=== PATIENT | male | born 1990 | race Caucasian/White ===

== ENCOUNTER 2017-02-14 22:39 | Emergency (ER) | payer SELFPAY ==
[~2017-02-14] VITALS: Ht 165.1 cm; Wt 54.4 kg
[2017-02-14 22:45] VITALS: BP 125/64
--- NOTE | 2017-02-14 22:55 | NUR ---
27Y M BIB FAMILY FOR SCREENING FOR CHLAMYDIA. PT WAS IN CONTACT WITH PARTNER, WHEN PARTNER WAS DX FOR CHLAMYDIA AT [facility] [place]. PT IS HERE NOW FOR SCREENING PURPOSE; PT DENIES ANY PAIN OR DISCOMFORT AT THE MOMENT
--- NOTE | 2017-02-14 22:55 | NUR ---
PT TAKEN TO BED 8
--- NOTE | 2017-02-14 23:03 | NUR ---
Dr. Anthony evaluating patient at bedside.
[2017-02-14] MEDS ORDERED: cefTRIAXone 250 MG in LIDOCAINE 1% ED 0.9 ML IM ONE (23:10)
[2017-02-14] MEDS ORDERED: AZITHROMYCIN 250 MG TAB PO ONE (23:15)
[2017-02-14 23:50] VITALS: BP 122/68
--- NOTE | 2017-02-14 23:50 | NUR ---
Patient discharged with v/s stable. Written and verbal after care instructions given and explained. Patient alert, oriented and verbalized understanding of instructions. Ambulatory with steady gait. All questions addressed prior to discharge. ID band removed. Patient advised to follow up with PMD. NO Rx WERE given. Patient educated on indication of medication including possible reaction and side effects. Opportunity to ask questions provided and answered.
== END 2017-02-14 23:50 | disposition home or self-care (01) ==
LOC: MED 22:39
DX: A74.9 Chlamydial infection, unspecified (principal); R03.0 Elevated blood-pressure reading, without diagnosis of hypertension
CPT/HCPCS: 36415; 96372; 99283; J0696; J2001

== ENCOUNTER 2018-12-22 18:15 | Emergency (ER) | payer SELFPAY ==
[~2018-12-22] VITALS: Ht 165.1 cm; Wt 55.8 kg
[2018-12-22 18:33] VITALS: BP 121/74
--- NOTE | 2018-12-22 18:35 | NUR ---
VSS; AMB TO LOBBY
[2018-12-22 19:47] LABS: APPEARANCE,URINE CLEAR (CLEAR); BILIRUBIN,URINE NEGATIVE (NEGATIVE); BLOOD, URINE TRACE-I (NEGATIVE); COLOR,URINE YELLOW (YELLOW); LEUKOCYTE ESTERASE ,URINE NEGATIVE (NEGATIVE); NITRITE, URINE NEGATIVE (NEGATIVE); UGLUCOSE NEGATIVE (NEGATIVE)
[2018-12-22 19:49] LABS: RBC,URINE 0-5 /HPF (0-5); WBC,URINE 0-5 /HPF (0-5)
--- NOTE | 2018-12-22 20:02 | NUR ---
PATIENT PRESENTS TO ED WITH C/O PENIS LESIONS THAT WERE NOTICED TODAY. PT REPORTS SEVERE ITCHING. DENIES N/V/D; SKIN IS PINK/WARM/DRY; AAOX4 WITH EVEN AND STEADY GAIT; LUNGS CLEAR BL; HR EVEN AND REGULAR; PT DENIES ANY FEVER, CP, SOB, OR COUGH AT THIS TIME; PATIENT STATES PAIN OF 0/10 AT THIS TIME; VSS; PATIENT POSITIONED FOR COMFORT; HOB ELEVATED; BEDRAILS UP X2; BED DOWN. ER MD MADE AWARE OF PT STATUS.
[2018-12-22 22:25] VITALS: BP 130/82
--- NOTE | 2018-12-22 22:25 | NUR ---
Patient discharged with v/s stable. Written and verbal after care instructions given and explained. Patient alert, oriented and verbalized understanding of instructions. Ambulatory with steady gait. All questions addressed prior to discharge. ID band removed. Patient advised to follow up with PMD. Rx of BENADRYL ALLERGY 25MG given. Patient educated on indication of medication including possible reaction and side effects. Opportunity to ask questions provided and answered.
[2018-12-25 06:31] LABS: CHLAMYDIA TRACHOMATIS AMP DNA Negative (Negative)
== END 2018-12-22 22:25 | disposition home or self-care (01) ==
LOC: MED 18:15
DX: N48.89 Other specified disorders of penis (principal)
CPT/HCPCS: 36415; 81001; 87491; 99283